=== PATIENT | male | born 1985 | race Caucasian/White ===

== ENCOUNTER 2019-12-04 19:38 | Emergency (ER) | payer BC ==
[2019-12-04 20:05] VITALS: RESP 18
[2019-12-04] MEDS ORDERED: ACETAMINOPHEN TAB 500 MG TAB PO STA (20:39)
[2019-12-04] MEDS ORDERED: SODIUM CHLORIDE 0.9% 1,000 ML IV STA (20:39)
--- NOTE | 2019-12-04 21:03 | ED ---
General Adult HPI - General Chief complaint: Weakness Stated complaint: [facility] Fever, Weakness Time Seen by Provider: 12/04/19 20:09 Source: patient Mode of arrival: ambulatory Limitations: no limitations - History of Present Illness Initial comments: 34-year-old male patient presents to the emergency department today for evaluation of fever. Patient states that for the last few days after working out he has been feeling very weak and rundown. States he's been having increased body aches. States today at work he started to feel poorly slid did take his temperature and it was elevated at 100.6. 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 States he has been having some coughing in the morning. Denies any shortness of breath. States he is having clear sputum production. Denies nausea, vomiting, rash, change in taste or smell. Denies any abdominal pain, constipation, or diarrhea. Patient denies any recent chest pain, back pain, numbness, tingling, dizziness, hematuria, dysuria, urinary urgency, urinary frequency, headache, visual changes, or any other complaints. - Related Data Allergies Allergy/AdvReac Type Severity Reaction Status Date / Time No Known Allergies Allergy Verified 12/04/19 20:05 Review of Systems ROS Statement: Those systems with pertinent positive or pertinent negative responses have been documented in the HPI. ROS Other: All systems not noted in ROS Statement are negative. Past Medical History Past Medical History: No Reported History History of Any Multi-Drug Resistant Organisms: None Reported Past Surgical History: Hernia Repair Past Psychological History: No Psychological Hx Reported Smoking Status: Never smoker Past Alcohol Use History: Occasional Past Drug Use History: None Reported General Exam Limitations: no limitations General appearance: alert, in no apparent distress, other (Physical well- developed, well-nourished adult male patient in no acute distress. Vital signs upon presentation are temperature 99.7F, pulse 103, respirations 18, blood pressure 133/74, pulse ox 98% on room air.) Eye exam: Present: normal appearance, PERRL, EOMI. Absent: scleral icterus, conjunctival injection, periorbital swelling ENT exam: Present: normal exam, normal oropharynx, mucous membranes moist Respiratory exam: Present: normal lung sounds bilaterally. Absent: respiratory distress, wheezes, rales, rhonchi, stridor Cardiovascular Exam: Present: regular rate, normal rhythm, normal heart sounds. Absent: systolic murmur, diastolic murmur, rubs, gallop, clicks GI/Abdominal exam: Present: soft, normal bowel sounds. Absent: distended, tenderness, guarding, rebound, rigid Neurological exam: Present: alert, oriented X3, CN II-XII intact Psychiatric exam: Present: normal affect, normal mood Skin exam: Present: warm, dry, intact, normal color. Absent: rash Course Vital Signs 12/04/19 12/04/19 20:02 21:59 Temperature 99.7 F H 98.1 F Pulse Rate 103 H 75 Respiratory 18 18 Rate Blood Pressure 133/74 121/74 O2 Sat by Pulse 98 97 Oximetry Medical Decision Making - Medical Decision Making 34-year-old male patient presents to the emergency department today for evaluation of fever, weakness, body aches. Physical examination is unremarkable. He is having no other symptoms other than a mild cough in the mornings. Chest x-ray shows no acute cardiopulmonary process. Labs reviewed and did reveal elevated white blood cell count at 19,000. We did obtain blood cultures and coronavirus swab. At this time his vital signs have improved with Tylenol. He will be discharged to follow-up with the primary care physician for recheck in 1-2 days. We did discuss possibility of COVID-19 infection and signs or symptoms of worsening illness. We did discuss quarantine procedures. Return parameters are discussed in detail. Patient verbalizes understanding and agrees with this plan. - Lab Data Result diagrams: 12/04/19 20:58 12/04/19 20:58 Lab Results 12/04/19 12/04/19 12/04/19 Range/Units 20:58 20:58 20:58 WBC 19.2 H (3.8-10.6) k/uL RBC 4.66 (4.30-5.90) m/uL Hgb 14.6 (13.0-17.5) gm/dL Hct 43.0 (39.0-53.0) % MCV 92.3 (80.0-100.0) fL MCH 31.3 (25.0-35.0) pg MCHC 33.9 (31.0-37.0) g/dL RDW 12.7 (11.5-15.5) % Plt Count 262 (150-450) k/uL Neutrophils % 94 % Lymphocytes % 3 % Monocytes % 2 % Eosinophils % 0 % Basophils % 0 % Neutrophils # 18.1 H (1.3-7.7) k/uL Lymphocytes # 0.6 L (1.0-4.8) k/uL Monocytes # 0.5 (0-1.0) k/uL Eosinophils # 0.1 (0-0.7) k/uL Basophils # 0.0 (0-0.2) k/uL Sodium 138 (137-145) mmol/L Potassium 3.9 (3.5-5.1) mmol/L Chloride 99 (98-107) mmol/L Carbon Dioxide 28 (22-30) mmol/L Anion Gap 11 mmol/L BUN 14 (9-20) mg/dL Creatinine 0.74 (0.66-1.25) mg/dL Est GFR (CKD-EPI)AfAm >90 (>60 ml/min/1.73 sqM) Est GFR (CKD-EPI)NonAf >90 (>60 ml/min/1.73 sqM) Glucose 128 H (74-99) mg/dL Plasma Lactic Acid Chava 1.9 (0.7-2.0) mmol/L Calcium 10.0 (8.4-10.2) mg/dL Total Bilirubin 0.9 (0.2-1.3) mg/dL AST 32 (17-59) U/L ALT 29 (4-49) U/L Alkaline Phosphatase 50 (38-126) U/L Total Protein 7.6 (6.3-8.2) g/dL Albumin 4.7 (3.5-5.0) g/dL Urine Color Urine Appearance (Clear) Urine pH (5.0-8.0) Ur Specific [place] (1.001-1.035) Urine Protein (Negative) Urine Glucose (UA) (Negative) Urine Ketones (Negative) Urine Blood (Negative) Urine Nitrite (Negative) Urine Bilirubin (Negative) Urine Urobilinogen (<2.0) mg/dL Ur Leukocyte Esterase (Negative) 12/04/19 Range/Units 20:58 WBC (3.8-10.6) k/uL RBC (4.30-5.90) m/uL Hgb (13.0-17.5) gm/dL Hct (39.0-53.0) % MCV (80.0-100.0) fL MCH (25.0-35.0) pg MCHC (31.0-37.0) g/dL RDW (11.5-15.5) % Plt Count (150-450) k/uL Neutrophils % % Lymphocytes % % Monocytes % % Eosinophils % % Basophils % % Neutrophils # (1.3-7.7) k/uL Lymphocytes # (1.0-4.8) k/uL Monocytes # (0-1.0) k/uL Eosinophils # (0-0.7) k/uL Basophils # (0-0.2) k/uL Sodium (137-145) mmol/L Potassium (3.5-5.1) mmol/L Chloride (98-107) mmol/L Carbon Dioxide (22-30) mmol/L Anion Gap mmol/L BUN (9-20) mg/dL Creatinine (0.66-1.25) mg/dL Est GFR (CKD-EPI)AfAm (>60 ml/min/1.73 sqM) Est GFR (CKD-EPI)NonAf (>60 ml/min/1.73 sqM) Glucose (74-99) mg/dL Plasma Lactic Acid Chava (0.7-2.0) mmol/L Calcium (8.4-10.2) mg/dL Total Bilirubin (0.2-1.3) mg/dL AST (17-59) U/L ALT (4-49) U/L Alkaline Phosphatase (38-126) U/L Total Protein (6.3-8.2) g/dL Albumin (3.5-5.0) g/dL Urine Color Light Yellow Urine Appearance Clear (Clear) Urine pH 6.0 (5.0-8.0) Ur Specific [place] 1.009 (1.001-1.035) Urine Protein Negative (Negative) Urine Glucose (UA) Negative (Negative) Urine Ketones Negative (Negative) Urine Blood Negative (Negative) Urine Nitrite Negative (Negative) Urine Bilirubin Negative (Negative) Urine Urobilinogen <2.0 (<2.0) mg/dL Ur Leukocyte Esterase Negative (Negative) Disposition Clinical Impression: Fever, Leukocytosis Disposition: HOME SELF-CARE Condition: Good Instructions (If sedation given, give patient instructions): Fever in Adults (ED), Leukocytosis (ED) Additional Instructions: Take Tylenol and Motrin. Increase fluids. Rest. Follow-up with your primary care physician for recheck as soon as possible. Have repeat blood testing done to evaluate her elevated white blood cell count. Return to the emergency department immediately for any new, worsening, or concerning symptoms. Is patient prescribed a controlled substance at d/c from ED?: No Referrals: Ihsan Kapoor MD [Medical Doctor] - 1-2 days Time of Disposition: 22:14
[2019-12-04 21:12] LABS: Appearance,Urine Clear (Clear); Basophils % (A) 0 %; Bilirubin,Urine Negative (Negative); Blood,Urine Negative (Negative); Color,Urine Light Yellow; Eosinophils # (A) 0.1 k/uL (0-0.7); Eosinophils % (A) 0 %; Glucose,Urine (UA) Negative (Negative); HGB 14.6 gm/dL (13.0-17.5); Ketones,Urine Negative (Negative); Leukocyte Esterase,Urine Negative (Negative); Lymphocytes # (A) 0.6 k/uL (1.0-4.8); Lymphocytes % (A) 3 %; MCH 31.3 pg (25.0-35.0); MCHC 33.9 g/dL (31.0-37.0); MCV 92.3 fL (80.0-100.0); Mean Platelet Volume 8.3; Monocytes # (A) 0.5 k/uL (0-1.0); Monocytes % (A) 2 %; Neutrophils # (A) 18.1 k/uL (1.3-7.7); Neutrophils % (A) 94 %; Nitrite,Urine Negative (Negative); Platelet Count 262 k/uL (150-450); Protein,Urine Negative (Negative); RBC 4.66 m/uL (4.30-5.90); RDW 12.7 % (11.5-15.5); Specific Gravity,Urine 1.009 (1.001-1.035); Urobilinogen,Urine <2.0 mg/dL (<2.0); WBC 19.2 k/uL (3.8-10.6)
--- NOTE | 2019-12-04 21:17 | XR ---
EXAMINATION TYPE: XR chest 2V DATE OF EXAM: 12/04/2019 COMPARISON: NONE HISTORY: Fever TECHNIQUE: FINDINGS: Heart and mediastinum are normal. Lungs are clear. Diaphragm is normal. Bony thorax appears normal. IMPRESSION: Normal chest. Normal heart.
[2019-12-04 21:20] LABS: ALT 29 U/L (4-49); AST 32 U/L (17-59); African American GFR (CKD) >90 (>60 ml/min/1.73 sqM); Albumin 4.7 g/dL (3.5-5.0); Alkaline Phosphatase 50 U/L (38-126); Anion Gap 11 mmol/L; Blood Urea Nitrogen 14 mg/dL (9-20); Carbon Dioxide 28 mmol/L (22-30); Chloride 99 mmol/L (98-107); Glucose 128 mg/dL (74-99); Non-African American GFR(CKD) >90 (>60 ml/min/1.73 sqM); Potassium 3.9 mmol/L (3.5-5.1); Sodium 138 mmol/L (137-145); Total Bilirubin 0.9 mg/dL (0.2-1.3); Total Protein 7.6 g/dL (6.3-8.2)
[2019-12-04 22:00] VITALS: BP 121/74; PULSE 75; TEMP 98.1
== END 2019-12-04 22:28 | disposition home or self-care (01) ==
LOC: EC 19:38
DX: Z20.828 Contact with and (suspected) exposure to other viral communicable diseases (principal); D72.829 Elevated white blood cell count, unspecified; R53.1 Weakness; R50.9 Fever, unspecified; R52 Pain, unspecified; R05 Cough
CPT/HCPCS: 99285 ×2; 96360 ×2; 36415; 80053; 83605; 85025; 81003; 87040; 71046; U0003

== ENCOUNTER → 2019-12-16 | Outpatient (CLI) | payer BC ==
--- NOTE | 2019-12-16 13:09 | XR ---
EXAMINATION TYPE: XR chest 2V DATE OF EXAM: 12/16/2019 COMPARISON: Prior chest x-ray 12/04/2019 HISTORY: Fever and shortness of breath TECHNIQUE: Frontal and lateral views of the chest are obtained. FINDINGS: There is no focal air space opacity, pleural effusion, or pneumothorax seen. The cardiac silhouette size is within normal limits. The osseous structures are intact. IMPRESSION: No acute cardiopulmonary process.
== END | disposition home or self-care (01) ==
LOC: RADXRMAIN 11:01
PROVIDERS: ATTEND Nurse Practitioner Family
DX: R50.9 Fever, unspecified (principal)
CPT/HCPCS: 71046

== ENCOUNTER → 2020-01-07 | Outpatient (CLI) | payer BC ==
--- NOTE | 2020-01-07 15:48 | XR ---
EXAMINATION TYPE: XR chest 2V DATE OF EXAM: 01/07/2020 COMPARISON: NONE TECHNIQUE: PA and lateral views submitted. HISTORY: Fever, shortness of breath and cough FINDINGS: The lungs are clear and there is no pneumothorax, pleural effusion, or focal pneumonia. No overt fa ilure. Heart size normal. IMPRESSION: 1. No acute process.
== END | disposition home or self-care (01) ==
LOC: RADXRMAIN 15:30
PROVIDERS: ATTEND Internal Medicine Geriatric Medicine
DX: J15.7 Pneumonia due to Mycoplasma pneumoniae (principal)
CPT/HCPCS: 71046

== ENCOUNTER 2020-08-31 08:15 | Emergency (ER) | payer BC ==
[2020-08-31 08:21] VITALS: RESP 18
--- NOTE | 2020-08-31 09:10 | ED ---
General Adult HPI - General Chief complaint: Urogenital Stated complaint: Groin Pain Time Seen by Provider: 08/31/20 08:22 Source: patient, RN notes reviewed Mode of arrival: ambulatory Limitations: no limitations - History of Present Illness Initial comments: 35-year-old male presents emergency Department chief complaint testicular pain. Patient states some right side. Patient states that has been on and off but has not resolved. Patient states there is no swelling no drainage no dysuria. Patient states that he was at work and states she was leaning over and is vehicle on the computer when hethe pain started. Patient had no prior surgeries patient offers no other complaints. - Related Data Allergies Allergy/AdvReac Type Severity Reaction Status Date / Time No Known Allergies Allergy Verified 08/31/20 08:19 Review of Systems ROS Statement: Those systems with pertinent positive or pertinent negative responses have been documented in the HPI. ROS Other: All systems not noted in ROS Statement are negative. Past Medical History Past Medical History: No Reported History History of Any Multi-Drug Resistant Organisms: None Reported Past Surgical History: Hernia Repair Past Psychological History: No Psychological Hx Reported Smoking Status: Never smoker Past Alcohol Use History: Occasional Past Drug Use History: None Reported General Exam Limitations: no limitations General appearance: alert, in no apparent distress Head exam: Present: atraumatic, normocephalic, normal inspection Eye exam: Present: normal appearance, PERRL, EOMI. Absent: scleral icterus, conjunctival injection, periorbital swelling ENT exam: Present: normal exam, normal oropharynx, mucous membranes moist Neck exam: Present: normal inspection, full ROM. Absent: tenderness, meningismus, lymphadenopathy Respiratory exam: Present: normal lung sounds bilaterally. Absent: respiratory distress, wheezes, rales, rhonchi, stridor Cardiovascular Exam: Present: regular rate, normal rhythm, normal heart sounds. Absent: systolic murmur, diastolic murmur, rubs, gallop, clicks GI/Abdominal exam: Present: soft, normal bowel sounds. Absent: distended, tenderness, guarding, rebound, rigid Back exam: Absent: CVA tenderness (R), CVA tenderness (L) Neurological exam: Present: alert, oriented X3 Skin exam: Present: warm, dry, intact, normal color. Absent: rash Course Vital Signs 08/31/20 08:19 Temperature 98 F Pulse Rate 65 Respiratory 18 Rate Blood Pressure 149/87 O2 Sat by Pulse 99 Oximetry Medical Decision Making - Medical Decision Making All child is unremarkable other than mild small epididymal cyst. Patient will be discharged stable condition return parameters were discussed. Disposition Clinical Impression: Scrotal pain, Epididymal cyst Disposition: HOME SELF-CARE Condition: Stable Instructions (If sedation given, give patient instructions): Scrotal Pain (ED) Additional Instructions: Please return to the Emergency Department if symptoms worsen or any other concerns. Is patient prescribed a controlled substance at d/c from ED?: No Referrals: Ihsan Kapoor MD [Primary Care Provider] - 1-2 days Hussein Rey MD [STAFF PHYSICIAN] - 1-2 days Time of Disposition: 09:34
--- NOTE | 2020-08-31 09:29 | US ---
EXAMINATION TYPE: US scrotum with doppler. Grayscale and color Doppler Duplex imaging performed of luis holbrook scrotum. DATE OF EXAM: 08/31/2020 COMPARISON: NONE CLINICAL HISTORY: pain. Pt states sudden onset of right testicle pain this AM EXAM MEASUREMENTS: TESTICLES: Right Testicle: 5.5 x 2.5 x 4.8 cm Left Testicle: 6.0 x 2.5 x 3.9 cm EPIDIDYMIS HEAD: Right Epididymis: 1.2 cm Left Epididymis: 1.3 cm Doppler performed to assess for testicular vascularity; good bilateral color flow and waveforms are s een. There is no evidence of testicular torsion. Presence of hydroceles: No Presence of varicoceles: No Bilateral testicles appeared wnl, small right epi head cyst= 0.5 x 0.4 cm IMPRESSION: 1. Small epididymal cyst. 2. Normal blood flow bilateral testicles
[2020-08-31 09:45] VITALS: BP 125/69; PULSE 67; TEMP 98.3
== END 2020-08-31 09:45 | disposition home or self-care (01) ==
LOC: EC 08:15
DX: N50.3 Cyst of epididymis (principal)
CPT/HCPCS: 76870; 93975; 99284

== ENCOUNTER → 2023-03-28 | Day surgery (SDC) | payer BC ==
[2023-03-27 10:29] VITALS: BMI 26.3
[~2023-03-28] MED LIST: LACTATED RINGERS 1,000 ML IV SCH; PROPOFOL 10 MG/ML 20 ML VIAL IV ONE
[2023-03-28 14:40] VITALS: TEMP 98.2
--- NOTE | 2023-03-28 15:48 | P.PCN ---
Date of Procedure: 03/28/23 Procedure(s) Performed: BRIEF HISTORY: Patient is a 38-year-old pleasant white male scheduled for an elective colonoscopy as a part of evaluation of chronic diarrhea for the last several months duration. He usually has bowel movements anywhere from 4-5 a day which are loose to watery in consistency with occasional blood in the stool. PROCEDURE PERFORMED: Colonoscopy with random biopsy. PREOPERATIVE DIAGNOSIS: Chronic diarrhea. IV sedation per Anesthesia. PROCEDURE: After informed consent was obtained, the patient, was brought into the endoscopy unit. IV sedation was administered by Anesthesia under continuous monitoring. Digital rectal examination was normal. Initially the Olympus CF-160 flexible video colonoscope was then inserted in the rectum, gradually advanced into the cecum without any difficulty. Careful examination was performed as the scope was gradually being withdrawn. Ileocecal valve and the appendiceal orifice were visualized and appeared normal. Prep was fair.. Mucosa of the cecum, ascending colon, transverse colon, descending colon, sigmoid colon, and rectum appeared normal. Biopsies were done from ascending and descending colon to rule out microscopic/collagenous colitis. Retroflexion was performed in the rectum and no lesions were seen. The patient tolerated the procedure well. IMPRESSION: Normal-appearing colon from rectum to cecum with no evidence of colorectal neoplasia. RECOMMENDATIONS: Findings of this examination were discussed with the patient as well as his family. He was advised to follow with the biopsy results.. Use [id number] Imodium as needed. Follow up in office in 3-4 weeks.
[2023-03-28 16:05] VITALS: RESP 14
[2023-03-28 16:24] VITALS: BP 144/81; PULSE 63
== END ==
LOC: ORWHC2ENDO 13:02
PROVIDERS: ATTEND Internal Medicine Gastroenterology
DX: K52.9 Noninfective gastroenteritis and colitis, unspecified (principal); F41.9 Anxiety disorder, unspecified; Z79.899 Other long term (current) drug therapy
CPT/HCPCS: 88305; 45380; J2704

== ENCOUNTER → 2023-04-10 | Outpatient (CLI) | payer BC ==
[2023-04-10 22:08] LABS: Basophils # (A) 0.02 X 10*3/uL (0.00-0.10); Basophils % (A) 0.3 %; Eosinophils # (A) 0.11 X 10*3/uL (0.04-0.35); Eosinophils % (A) 1.7 %; HCT 43.2 % (39.6-50.0); HGB 14.8 g/dL (13.0-17.0); Lymphocytes # (A) 2.09 X 10*3/uL (0.90-5.00); Lymphocytes % (A) 32.2 %; MCH 30.6 pg (27.0-32.0); MCHC 34.3 g/dL (32.0-37.0); MCV 89.3 FL (80.0-97.0); Mean Platelet Volume 10.8 FL (9.5-12.2); Monocytes # (A) 0.46 X 10*3/uL (0.20-1.00); Monocytes % (A) 7.1 %; NRBC Per 100 WBC 0 X 10*3/uL (0.00-0.01); Neutrophils # (A) 3.79 X 10*3/uL (1.80-7.70); Neutrophils % (A) 58.4 %; Platelet Count 308 X 10*3/uL (140-440); RBC 4.84 X 10*6/uL (4.40-5.60); WBC 6.49 X 10*3/uL (4.50-10.00)
[2023-04-11 02:11] LABS: Gliadin AB IgA, Deaminated Negative (Negative); Gliadin AB IgA, Unit <0.5 U/mL; Gliadin AB IgG, Deaminated Negative (Negative); Gliadin AB IgG, Unit 1.5 U/mL
[2023-04-11 02:51] LABS: ALT 61 U/L (10-49); AST 31 U/L (14-35); Albumin 4.8 g/dL (3.8-4.9); Albumin/Globulin Ratio 2.09 Ratio (1.60-3.17); Alkaline Phosphatase 59 U/L (41-126); BUN/Creat Ratio 18.56 Ratio (12.00-20.00); Blood Urea Nitrogen 16.7 mg/dL (9.0-27.0); Calcium 10.2 mg/dL (8.7-10.3); Chloride 102 mmol/L (96-109); Globulin 2.3 g/dL (1.6-3.3); Glucose 90 mg/dL (70-110); Potassium 4.5 mmol/L (3.5-5.5); Sodium 141 mmol/L (135-145); Total Bilirubin 0.2 mg/dL (0.3-1.2); Total Protein 7.1 g/dL (6.2-8.2)
== END | disposition home or self-care (01) ==
LOC: LABWHC1 15:58
PROVIDERS: ATTEND Internal Medicine Gastroenterology
DX: K52.9 Noninfective gastroenteritis and colitis, unspecified (principal)
CPT/HCPCS: 36415; 80053; 83516; 85025